=== PATIENT | male | born 1980 | race African-American/Black ===

== ENCOUNTER → 2021-02-09 | Day surgery (SDC) | payer OTHER ==
[2021-02-07 10:48] LABS: BASOPHILS % 0.5 % (0.0-1.0); EOSINOPHILS # (AUTO) 0.1 (0.0-0.4); EOSINOPHILS % 2.2 % (0.0-6.0); HEMATOCRIT 43.2 % (38.2-49.6); HEMOGLOBIN 13.7 g/dL (14.0-18.0); LYMPHOCYTES # (AUTO) 1.9 (1.0-3.2); LYMPHOCYTES % 32.4 % (18.0-39.1); MEAN CORPUSCULAR HEMOGLOBIN 26.8 pg (28-32); MEAN CORPUSCULAR HGB CONC 31.7 g/dL (31-35); MEAN CORPUSCULAR VOLUME 84.4 fL (81-99); MONOCYTES # (AUTO) 0.5 (0.2-0.8); MONOCYTES % 9.3 % (4.4-11.3); NEUTROPHILS # (AUTO) 3.2 (2.1-6.9); NEUTROPHILS % 55.3 % (38.7-80.0); PLATELET COUNT 325 x10e3/uL (140-360); RED BLOOD COUNT 5.12 x10e6/uL (4.3-5.7); RED CELL DISTRIBUTION WIDTH 13.7 % (11.7-14.4)
[2021-02-07 11:20] LABS: CALCIUM 9.1 mg/dL (8.4-10.2); CREATININE, SERUM 0.95 mg/dL (0.72-1.25)
[~2021-02-09] MED LIST: BUPIVACAINE 0.25% 30ML SDV ONE; FERROUS SULFAT324 MG PO; HYDROCODONE/APAP 7.5MG-325MG 1 EA TAB ONE; MEN'S MULTIVIT1 EACH PO; VITAMIN C500 MG PO; VITAMIN D3250 MCG PO
[2021-02-09 12:00] VITALS: BP 126/75
== END | disposition home or self-care (01) ==
LOC: OR 05:21 → EDBD 07:30
PROVIDERS: ATTEND Surgery
DX: K43.6 Other and unspecified ventral hernia with obstruction, without gangrene (principal); E66.9 Obesity, unspecified; Z01.810 Encounter for preprocedural cardiovascular examination; Z01.812 Encounter for preprocedural laboratory examination; Z20.822 Contact with and (suspected) exposure to COVID-19
CPT/HCPCS: 36415; 49561; 49568; 80048; 85025; 93005; C1781; U0002